=== PATIENT | female | born 1980 | race Caucasian/White ===

== ENCOUNTER 2017-05-23 23:17 | Emergency (ER) | payer SELFPAY ==
[~2017-05-23] VITALS: Ht 154.9 cm; Wt 106.6 kg
[2017-05-23 23:48] VITALS: Ht 154.9 cm; Wt 106.6 kg
[2017-05-24 02:38] VITALS: BP 122/76
== END 2017-05-24 02:38 | disposition home or self-care (01) ==
LOC: ED 23:17
DX: M54.42 Lumbago with sciatica, left side (principal)
CPT/HCPCS: J2270; Q0092